=== PATIENT | male | born 1980 | race Caucasian/White ===

== ENCOUNTER 2016-09-16 10:42 | Emergency (ER) | payer SELFPAY ==
[~2016-09-16 10:42] MED LIST: LORTAB 5/500 TA1 TA1 PO
== END 2016-09-16 12:00 | disposition home or self-care (01) ==
LOC: CED 10:42 → CFTX 10:42
DX: S39.012A Strain of muscle, fascia and tendon of lower back, initial encounter (principal); X58.XXXA Exposure to other specified factors, initial encounter; Y92.89 Other specified places as the place of occurrence of the external cause
CPT/HCPCS: 99282